=== PATIENT | male | born 1995 | race Caucasian/White ===

== ENCOUNTER 2023-12-22 15:22 | Emergency (ER) | payer SELFPAY ==
[~2023-12-22] VITALS: Ht 157.5 cm; Wt 77.0 kg
[2023-12-22 16:40] VITALS: BP 153/87; PULSE 60; RESP 18; TEMP 97.9; O2SAT 100
== END 2023-12-22 21:21 | disposition home or self-care (01) ==
LOC: ER 15:22
DX: F10.239 Alcohol dependence with withdrawal, unspecified (principal); F41.0 Panic disorder [episodic paroxysmal anxiety]; R07.9 Chest pain, unspecified; Y90.9 Presence of alcohol in blood, level not specified
CPT/HCPCS: 93005; 99283